=== PATIENT | female | born 1960 | race African-American/Black ===

== ENCOUNTER 2017-10-29 04:59 | Inpatient (IN) ==
[2017-10-29] MEDS ORDERED: NITROGLYCERIN 2% OINT 1 INCH/GM PACK TOP STA (05:22)
[2017-10-29] MEDS ORDERED: ONDANSETRON 4 MG/2 ML VIAL IV PRN (05:23)
[2017-10-29 07:58] LABS: Basophils # 0.1 10*3/uL (0.0-0.2); Basophils % 0.6 % (0.0-0.8); Eosinophils # 0.1 10*3/uL (0.0-0.87); Eosinophils % 0.9 % (0.00-10.9); Hematocrit 42.4 VOL% (35.7-47.0); Hemoglobin 13.6 GM/DL (12.0-16.0); Immature Granulocytes % 0.5 %; Immature Granulocytes Absolute 0.05 #; Lymphocytes # 3.6 10*3/uL (1.4-4.0); Lymphocytes % 32.9 % (21.3-54.2); Mean Corpuscular HGB Conc 32.1 GM/DL (32-36); Mean Corpuscular Hemoglobin 29 PG (27-34); Mean Platelet Volume 8.9 FL (9.6-12.0); Monocytes # 0.7 10*3/uL (0.11-0.8); Neutrophils # 6.5 10*3/uL (1.4-7.4); Neutrophils % 59.1 % (38.7-73.9); Platelet Count 412 T/CUMM (130-400); Red Blood Count 4.66 MC/CUMM (3.8-5.5); Red Cell Distribution Width 15.2 % (9.3-17.3); White Blood Count 10.9 T/CUMM (4-12)
[2017-10-29 08:25] LABS: Albumin 3.8 G/DL (3.4-5.0); Bilirubin,Total 0.4 MG/DL (0.2-1.0); Calcium 9.4 MG/DL (8.5-10.1); Osmolality,Calculated 280.3 MOS/KG (273-304); Potassium 4.3 MMOL/L (3.5-5.1); Total Protein 7.8 G/DL (6.4-8.3)
[2017-10-29 08:49] LABS: Risk Ratio 6.34; VLDL CHOLESTEROL 78.6 MG/DL
[2017-10-29] MEDS ORDERED: METOPROLOL TARTRATE 25 MG TABLET PO SCH (09:00)
[2017-10-29] MEDS ORDERED: ASPIRIN EC 81 MG TABLET PO SCH (09:00)
[2017-10-29] MEDS ORDERED: ENOXAPARIN 80 MG/0.8 ML SYRINGE SUBCUT SCH (15:00)
[2017-10-29] MEDS ORDERED: NITROGLYCERIN SL 0.4 MG TABLET SL PRN (15:41)
[2017-10-29] MEDS ORDERED: MAGNESIUM SULF RIDER 2 GM in PREMIX 1 EACH IV PRN (16:53)
[2017-10-29] MEDS ORDERED: POTASSIUM CHLORIDE RIDER 10 MEQ in PREMIX 1 EACH IV PRN (16:53)
[2017-10-29] MEDS ORDERED: MAGNESIUM HYDROXIDE SUSP 30 ML UDCUP PO PRN (16:55)
[2017-10-29] MEDS ORDERED: diphenhydrAMINE CAP 25 MG CAPSULE PO PRN (16:55)
[2017-10-29] MEDS ORDERED: ROSUVASTATIN 20 MG TABLET PO SCH (21:00)
[2017-10-30 05:26] LABS: Basophils % 0.4 % (0.0-0.8); Eosinophils # 0.1 10*3/uL (0.0-0.87); Hematocrit 45.6 VOL% (35.7-47.0); Hemoglobin 14.4 GM/DL (12.0-16.0); Immature Granulocytes % 0.3 %; Immature Granulocytes Absolute 0.03 #; Lymphocytes # 4.1 10*3/uL (1.4-4.0); Lymphocytes % 42.8 % (21.3-54.2); Mean Corpuscular HGB Conc 31.6 GM/DL (32-36); Mean Corpuscular Hemoglobin 29 PG (27-34); Mean Corpuscular Volume 90.5 FL (87-102); Mean Platelet Volume 8.9 FL (9.6-12.0); Monocytes # 0.7 10*3/uL (0.11-0.8); Monocytes % 6.8 % (1.7-12.7); Neutrophils # 4.7 10*3/uL (1.4-7.4); Neutrophils % 48.7 % (38.7-73.9); Platelet Count 430 T/CUMM (130-400); Red Blood Count 5.04 MC/CUMM (3.8-5.5); Red Cell Distribution Width 15.2 % (9.3-17.3); White Blood Count 9.7 T/CUMM (4-12)
[2017-10-30 05:51] LABS: Calcium 9.2 MG/DL (8.5-10.1); Osmolality,Calculated 280.3 MOS/KG (273-304); Potassium 4.1 MMOL/L (3.5-5.1)
[2017-10-30 05:52] LABS: Calcium 9.2 MG/DL (8.5-10.1); Osmolality,Calculated 280.3 MOS/KG (273-304); Potassium 3.9 MMOL/L (3.5-5.1)
[2017-10-30] MEDS ORDERED: NITROGLYCERIN SL 0.4 MG TABLET SL PRN (07:00)
[2017-10-30] MEDS ORDERED: ONDANSETRON 4 MG/2 ML VIAL IV PRN (07:00)
[2017-10-30] MEDS ORDERED: diphenhydrAMINE CAP 25 MG CAPSULE PO ONE (07:00)
[2017-10-30] MEDS ORDERED: DIAZEPAM 5 MG TABLET PO ONE (07:00)
[2017-10-30] MEDS ORDERED: ENOXAPARIN 80 MG/0.8 ML SYRINGE SUBCUT SCH (07:00)
[2017-10-30] MEDS ORDERED: HEPARIN/NACL 0.9% 2 UNITS/ML 1,000 ML IV ONE (07:03)
[2017-10-30] MEDS: ASPIRIN EC 81 MG TABLET PO SCH ×2 (07:39→09:05)
[2017-10-30] MEDS: METOPROLOL TARTRATE 25 MG TABLET PO SCH ×3 (07:39→21:47)
[2017-10-30] MEDS ORDERED: MIDAZOLAM 2 MG/2 ML VIAL ONE ×3 (08:08→08:32)
[2017-10-30] MEDS ORDERED: fentaNYL 100 MCG/2 ML VIAL ONE (08:08)
[2017-10-30] MEDS ORDERED: VERAPAMIL 5 MG/2 ML VIAL ONE (08:08)
[2017-10-30] MEDS ORDERED: NITROGLYCERIN DRIP 50 MG/250 ML BOTTLE IV ONE (08:08)
[2017-10-30] MEDS ORDERED: ENOXAPARIN 60 MG/0.6 ML SYRINGE ONE ×2 (08:22→09:10)
[2017-10-30] MEDS ORDERED: ADENOSINE 90 MG/30 ML VIAL IV ONE (08:30)
[2017-10-30] MEDS ORDERED: diphenhydrAMINE 50 MG/1 ML VIAL ONE (08:32)
[2017-10-30] MEDS: ROSUVASTATIN 20 MG TABLET PO SCH ×2 (09:05→21:47)
[2017-10-30] MEDS ORDERED: HEPARIN/NACL 0.9% 2 UNITS/ML 500 ML IV ONE (09:22)
[2017-10-30] MEDS ORDERED: TICAGRELOR 90 MG TABLET ONE (09:22)
[2017-10-30] MEDS ORDERED: ACETAMINOPHEN 325 MG TABLET PO PRN (09:26)
[2017-10-30] MEDS ORDERED: amLODIPine 5 MG TABLET PO ONE (09:29)
[2017-10-30] MEDS ORDERED: hydrALAZINE 20 MG/1 ML VIAL IV PRN (09:29)
[2017-10-30] MEDS ORDERED: SODIUM CHLORIDE 0.9% 1,000 ML IV SCH (09:30)
[2017-10-30] MEDS: PANTOPRAZOLE 40 MG TABLET PO SCH (10:27)
[2017-10-30] MEDS: TICAGRELOR 90 MG TABLET PO SCH (21:47)
[2017-10-31 05:20] LABS: Basophils # 0.1 10*3/uL (0.0-0.2); Basophils % 0.5 % (0.0-0.8); Eosinophils # 0.1 10*3/uL (0.0-0.87); Eosinophils % 0.5 % (0.00-10.9); Hematocrit 44.8 VOL% (35.7-47.0); Hemoglobin 14.2 GM/DL (12.0-16.0); Immature Granulocytes % 0.4 %; Immature Granulocytes Absolute 0.04 #; Lymphocytes # 3.3 10*3/uL (1.4-4.0); Lymphocytes % 29.3 % (21.3-54.2); Mean Corpuscular HGB Conc 31.7 GM/DL (32-36); Mean Corpuscular Hemoglobin 28 PG (27-34); Mean Corpuscular Volume 89.6 FL (87-102); Monocytes # 0.7 10*3/uL (0.11-0.8); Monocytes % 6.4 % (1.7-12.7); Neutrophils # 7.1 10*3/uL (1.4-7.4); Neutrophils % 62.9 % (38.7-73.9); Platelet Count 442 T/CUMM (130-400); Red Cell Distribution Width 15.1 % (9.3-17.3); White Blood Count 11.3 T/CUMM (4-12)
[2017-10-31 05:44] LABS: Calcium 9.1 MG/DL (8.5-10.1); Osmolality,Calculated 278.4 MOS/KG (273-304); Potassium 4.3 MMOL/L (3.5-5.1)
[2017-10-31 05:46] LABS: Osmolality,Calculated 279.4 MOS/KG (273-304); Potassium 4.3 MMOL/L (3.5-5.1)
[2017-10-31] MEDS ORDERED: amLODIPine 5 MG TABLET PO SCH (09:00)
[2017-10-31] MEDS ORDERED: LOSARTAN 25 MG TABLET PO SCH (09:00)
[2017-10-31 09:08] VITALS: BP 168/85
[2017-10-31] MEDS: ASPIRIN EC 81 MG TABLET PO SCH (09:10)
[2017-10-31] MEDS: PANTOPRAZOLE 40 MG TABLET PO SCH (09:10)
[2017-10-31] MEDS: TICAGRELOR 90 MG TABLET PO SCH (09:10)
[2017-10-31] MEDS: METOPROLOL TARTRATE 25 MG TABLET PO SCH (09:10)
== END 2017-10-31 11:05 | disposition home or self-care (01) | DRG 247 ==
LOC: EDBD → EDUNIT# → N.ED 04:59 → N.EDINP 05:23 → N.TELEN 06:14
PROVIDERS: ADMIT Internal Medicine Clinical Cardiac Electrophysiology; ATTEND Internal Medicine Clinical Cardiac Electrophysiology
PROC: CLCCHCL (ICD-10-PCS; 2017-10-30 08:45)